=== PATIENT | female | born 1995 | race African-American/Black ===

== ENCOUNTER → 2017-03-31 | Outpatient (CLI) | payer OTHER ==
[2017-04-02 14:48] LABS: MUMPS IgG VALUE <9.00 AU/ML
[2017-04-02 15:52] LABS: QUANTIF TB AG-NIL <0.00 IU/ML; QUANTIFERON NIL 0.23 IU/ML
== END | disposition home or self-care (01) ==
LOC: C.LAB1850 16:51
PROVIDERS: ATTEND Internal Medicine
DX: Z00.00 Encounter for general adult medical examination without abnormal findings (principal)